=== PATIENT | female | born 1965 | race Caucasian/White ===

== ENCOUNTER 2020-01-03 09:18 | Outpatient (CLI) | payer BC, SELFPAY ==
--- NOTE | ~2020-01-03 | XR_ITS ---
XR lumbar spine 2-3V DATE: 01/03/2020 09:44 INDICATION: Low back pain, right sciatica for several years TECHNIQUE: AP, lateral, coned lateral lumbosacral views COMPARISON: None FINDINGS: There are 4 functional lumbar vertebra. There is a transitional lumbosacral vertebra; this may be a source of chronic low back pain. No fracture or bone destruction or spondylolisthesis. There is mild to moderate degenerative disc dis ease throughout the lumbar spine. The lumbar pedicles are intact. The sacroiliac joints appear normal . IMPRESSION: Transitional lumbosacral vertebra Mild to moderate degenerative disc disease of the lumbar spine Reviewed, dictated and finalized at location B.
== END 2020-01-03 09:19 | disposition home or self-care (01) ==
PROVIDERS: PCP Family Medicine; Visit Provider Family Medicine
DX: M54.41 Lumbago with sciatica, right side (principal); Q76.49 Other congenital malformations of spine, not associated with scoliosis; M51.36 Other intervertebral disc degeneration, lumbar region
CPT/HCPCS: 72100

== ENCOUNTER 2020-01-20 08:28 | Outpatient (CLI) | payer BC, SELFPAY ==
--- NOTE | ~2020-01-20 | MR_ITS ---
EXAMINATION: MR lumbar spine wo con DATE: 01/20/2020 09:11 INDICATION: Low back pain. Right-sided sciatica. TECHNIQUE: Magnetic resonance imaging (MRI) of the lumbar spine was performed without intravenous con trast. Sequences included sagittal T2-weighted FSE, sagittal T2-weighted FS FSE, sagittal T1-weighted FSE, and axial T2-weighted FSE. COMPARISON: Lumbar spine radiographs 01/03/2020 FINDINGS: L5 is a transitional segment. Bone alignment is normal. Vertebral body heights are normal. There is mildly decreased disc height at L4-L5. The distal spinal cord signal intensity is normal. Th e conus medullaris is at T12. The following disc levels are specifically discussed: L1-L2: The disc does not extend beyond the endplate margin. There is moderate bilateral facet joint o steoarthritis. There is no neural foraminal stenosis. There is no central canal stenosis. L2-L3: The disc is bulging. There is severe right and moderate left facet joint osteoarthritis. There is mild bilateral neural foraminal stenosis. There is mild central canal stenosis. L3-L4: The disc is bulging. There is moderate right and severe left facet joint osteoarthritis. There is mild bilateral neural foraminal stenosis. There is mild central canal stenosis. L4-L5: The disc is bulging. There is moderate right and severe left facet joint osteoarthritis. There is mild bilateral neural foraminal stenosis. There is mild central canal stenosis. L5-S1: The disc does not extend beyond the endplate margin. There is no facet joint hypertrophy. Ther e is no neural foraminal stenosis. There is no central canal stenosis. IMPRESSION: 1. Mild lumbar spondylosis. Reviewed, dictated and finalized at location A. IMPRESSION: 1. Mild lumbar spondylosis.
== END 2020-01-20 08:29 | disposition home or self-care (01) ==
LOC: ANHIMG 08:33
PROVIDERS: PCP Family Medicine; Visit Provider Family Medicine
DX: M54.30 Sciatica, unspecified side (principal); M47.896 Other spondylosis, lumbar region
CPT/HCPCS: 72148

== ENCOUNTER 2023-04-28 12:30 | Outpatient (RCR) | payer OTHER, SELFPAY ==
[2023-03-30 15:30] VITALS: BP_SYST 95
--- NOTE | 2023-03-30 16:24 | PTOPEVAL1 ---
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; had injection- has helped pain; saw general [facility]- had xray of shoulder, then went to ortho, received injection and sent here for therapy; Reported Pain Level Pain Score Self Report Additional Pain Score Comments pain range in the past week: 0-8/10; pain lateral upper humerus- feel like swollen, achey, kind of delgado; increase reaching forward and stretch too far, weather changes decrease pain: ice, muscle cream problems lying on her L side to sleep--props up pillows just right and can lie on side; once get comfortable and fall asleep, do not awaken due to pain; Assessment PT Clinical Summary Adrianna has the diagnosis of L shoulder tendonitis, frozen shoulder. 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 Pain limits her use of non dominant arm. With the evaluation, she has decreased ROM and strength of L shoulder, with all ranges; IR is most painful motion. Posture of rounded shoulders and thoracic weakness, with spasms over L shoulder. skilled PT services are indicated for modalities to decrease pain and spasms, therapeutic exercises to increase shoulder ROM and strength with education for home exercises and posture correction. Plan of Care Interventions Electrical Stimulation,Hot Pack/Cold Pack,Manual Therapy,Neuro Re-education,Patient Education,Therapeutic Activities,Therapeutic Exercise,Ultrasound,Other Other Interventions oral, [facility] PT Services Indicated Yes Treatment Frequency and 2x/wk for 4 weeks Duration These treatments will address the objective and functional deficits as defined above. The patient will be advanced safely and appropriately in order for the patient to progress towards his/her prior level of function. Additional exercises will be intr
[2023-04-28 12:30] VITALS: BP_SYST 155
--- NOTE | 2023-04-28 13:08 | PTOPDC ---
Assessment and note entered by Karine Penn, PT Evaluation Information Assessment Status Discharge Diagnosis L shoulder tendonitis/frozen shoulder Onset May 2022 Subjective Information Adrianna reports: shoulder is much better--able to hook bra, take shirt off over her head without any trouble, can reach into cabinets now; can fall asleep without any troubles, but usually sleep with her arm completely overhead with arm by her ear, but arm is now at her side; is doing all the exercises ok; Reported Pain Level Pain Score Self Report Additional Pain Score Comments pain range in the past week: 0-3/10;lateral humerus- tight and sore, hurts; increase pain: reaching out to side and up; decrease pain: rest, stretch shoulder have not need ice or heat anymore Assessment PT Clinical Summary Adrianna has received 8 PT sessions. 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 All of the goals were achieved, except flexion ROM active. Discharge PT services. She is to continue with her HEP, with emphasis on stretching to the end range of her shoulder motions in supine. Plan of Care PT Services Indicated No
== END 2023-04-28 15:01 | disposition home or self-care (01) ==
LOC: ANHPT 12:30
PROVIDERS: PCP Family Medicine; Visit Provider Nurse Practitioner
DX: M75.02 Adhesive capsulitis of left shoulder (principal); M25.512 Pain in left shoulder; M77.8 Other enthesopathies, not elsewhere classified
CPT/HCPCS: 97110; 97140; 97161

== ENCOUNTER 2023-06-17 12:47 | Outpatient (CLI) | payer OTHER, SELFPAY ==
[2023-06-17 14:30] LABS: Alanine Aminotransferase 28 U/L (6-35); Albumin Level 4.4 g/dL (3.5-5.1); Alkaline Phosphatase 67 U/L (38-126); Anion Gap 9 mmol/L (8-16); Aspartate Amino Transferase 28 U/L (14-36); Bilirubin,Total 0.9 mg/dL (0.2-1.3); Blood Urea Nitrogen 19 mg/dL (7-17); Calcium 8.6 mg/dL (8.4-10.2); Carbon Dioxide 29 mmol/L (22-30); Chloride 100 mmol/L (98-107); Cholesterol 192 mg/dL (0-200); Estimated Glomerular Filt Rate > 60; Glucose 118 mg/dL (65-110); HDL Direct 47 mg/dL; Potassium 3.7 mmol/L (3.4-5.0); Sodium 138 mmol/L (137-145); Triglycerides 169 mg/dL (<150)
[2023-06-17 14:42] LABS: LDL Cholesterol Direct 117 mg/dL
[2023-06-17 15:26] LABS: Free T4 Free Thyroxine 1.32 ng/mL (0.78-2.19); Vitamin D 25 Hydroxy 31.7 ng/mL
== END 2023-06-17 12:48 | disposition home or self-care (01) ==
LOC: ANHLAB 12:51
PROVIDERS: PCP Family Medicine; Visit Provider Physician Assistant
DX: E78.5 Hyperlipidemia, unspecified (principal); I10 Essential (primary) hypertension; E03.9 Hypothyroidism, unspecified; E55.9 Vitamin D deficiency, unspecified
CPT/HCPCS: 36415; 80053; 80061; 82306; 84439; 84443